=== PATIENT | female | born 1965 | race Hispanic/Latino ===

== ENCOUNTER 2017-04-25 16:18 | Inpatient (IN) | payer SELFPAY ==
--- NOTE | 2017-04-25 17:07 | C.PDOC ---
History Of Present Illness 51-year-old female, PMHx includes Bipolar Disorder, is transferred from [facility] for psych admission. Hospital records were reviewed. Patient was arrested last night for DUI, and told police that she was experiencing chest pain and having SI. Patient smith been experiencing chest pain for the past week which is attributed to her anxiety. Denies nausea/vomiting. No plan. Patient had a negative Troponin and and negative EKG at [place]. Time Seen by Provider: 04/25/17 16:26 Chief Complaint (Nursing): Psychiatric Evaluation History Per: Patient History/Exam Limitations: no limitations Past Medical History Reviewed: Historical Data, Nursing Documentation, Vital Signs Vital Signs: Last Vital Signs Temp 98.1 F 04/25/17 16:37 Pulse 80 04/25/17 16:37 Resp 18 04/25/17 16:37 BP 136/80 04/25/17 16:37 Pulse Ox 96 04/25/17 17:10 - Medical History PMH: Anxiety, Bipolar Disorder Surgical History: Cholecystectomy Family History: States: No Known Family Hx - Social History Hx Alcohol Use: Yes Hx Substance Use: No - Immunization History Hx Tetanus Toxoid Vaccination: No Hx Influenza Vaccination: No Hx Pneumococcal Vaccination: No Review Of Systems Except As Marked, All Systems Reviewed And Found Negative. Constitutional: Negative for: Fever, Chills Cardiovascular: Positive for: Chest Pain Respiratory: Negative for: Shortness of Breath Gastrointestinal: Negative for: Nausea, Vomiting Musculoskeletal: Negative for: Back Pain Neurological: Negative for: Weakness, Numbness Psych: Positive for: Anxiety, Suicidal ideation Physical Exam - Physical Exam Appears: Non-toxic, No Acute Distress, Other (appears anxious) Skin: Warm, Dry, No Rash Head: Atraumatic, Normacephalic Eye(s): bilateral: Normal Inspection Nose: Normal Oral Mucosa: Moist Lips: Normal Appearing Neck: Normal ROM Cardiovascular: Rhythm Regular, No Murmur Respiratory: Normal Breath Sounds, No Accessory Muscle Use Extremity: Normal ROM Neurological/Psych: Oriented x3, Normal Speech ED Course And Treatment O2 Sat by Pulse Oximetry: 96 (on RA) Pulse Ox Interpretation: Normal - Scribe Statement The provider has reviewed the documentation as recorded by the Scribe (Bryson Lentz) All medical record entries made by the Scribe were at my direction and personally dictated by me. I have reviewed the chart and agree that the record accurately reflects my personal performance of the history, physical exam, medical decision making, and the department course for this patient. I have also personally directed, reviewed, and agree with the discharge instructions and disposition.
--- NOTE | 2017-04-25 17:36 | PCM.BM ---
<JoseMarilynn segura - Last Filed: 04/25/17 17:35> Treatment Plan Problems - Problems identified on initial assessmt anxiety Date Initiated: 04/25/17 Time Initiated: 17:35 Assessment reference: NA Status: Active depression Date Initiated: 04/25/17 Time Initiated: 17:36 Assessment reference: NA Status: Active Treatment assets and liabiliti Patient Assests: adapts well, cooperative, negotiates basic needs Patient Liabilities: poor support system - Milieu Protocol Maintain good personal hygiene: daily Encourage regular showers, daily Remind patient to perform daily oral care Conduct patient checks and document Observation sheet: Q15 minutes Maintain personal safety: every shift Educate patient to report safety concerns to staff, every shift Monitor environment for contraband/sharps Medication safety: Monitor for expected outcome, potential side effects: every shift, Assess barriers to learning: every shift, Assess readiness for medication education: every shift <UlisesPatricia - Last Filed: 04/26/17 10:41> Family Contact Family involvement: Family/SO is involved Family contact: Patient declines to allow family contact at present - Goals for Treatment Patient goals for treatment: "I need an outpatient program." Discharge/Continuing Care - Education Needs Education Needs: Patient Medication, Patient Coping Skills - Discharge Discharge Criteria: Tolerates medication w/o severe side effects, Reduction of target symptoms Discharge to:: Home - Treatment Team Participation Discussed with Family/SO: No Was Patient/Family/SO present at Treatment Team Meeting: Yes <Jesús Hayden - Last Filed: 04/26/17 10:45> - Diagnosis (1) Bipolar disorder, curr episode mixed, severe, w/o psychotic features Status: Acute Interventions: 04/26/17 10:44 * Assess/adjust medications daily and /or as needed * See patient on an individual basis 7x/week to assess level of manic behaviors and stability * Discuss risks, benefits, side effects and alternatives of medications * (2) Alcohol use disorder, moderate, dependence Status: Acute Interventions: 04/26/17 10:45 * Assess 7x/week regarding severity of withdrawal * Educate regarding risks, benefits, side effects and alternatives of medications * Use Motivational Interviewing for abstinence * Use CBT for relapse prevention * Medication management for withdrawal symptoms * Encourage medication assisted treatment *
[2017-04-26] MEDS: Multiple Vitamins Tab PO SCH (09:29)
--- NOTE | 2017-04-26 10:40 | PCM.PSYCH ---
Initial Psychiatric Evaluation - Initial Psychiatric Evaluation Type of Admission: Voluntary Legal Status: Capacity Chief Complaint (in patient's own words): " I am depressed" History of Present Illness and Precipitating Events: Patient is a 51 year old female who was brought to the unit for a history of depression. She is single, living with her cousin, and has one daughter who has schizophrenia. 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 She denies any history of alcohol dependance, stating she is only a social drinker consuming 1 to 2 drinks weekly. That evening she drank 3-4 beers and one shot of hard liquor. This is her first DUI and denies any legal problems in the past. Patient has a history of depression and bipolar disorder. She currently is very tearful. She states she feels worthless, hopeless about her life situation, and overwhelmed. Her finances and family situation are her main stressors. At times she has racing thoughts at night that prevent her from sleeping. She also reports flight of ideas and irritability. She denies any hallucinations, paranoia, S/I or H/I. She denies any psychiatric follow up or taking medications. She does not have contact with her family and states she feels very "alone." Patient smokes 1 pack of cigarettes daily and is requesting the patch. She denies drug use. PMH:Denies Past Psych: Depression and anxiety. No past hospitalizations for the issues Family Psych History: Denies Current Medications: Active Medications Generic Name Dose Route Start Last Admin Trade Name Freq PRN Reason Stop Dose Admin Chlordiazepoxide 25 mg 04/25/17 18:09 04/25/17 19:35 Librium PO 25 mg Q6H PRN Administration Alcohol Withdrawal Clonidine HCl 0.1 mg 04/25/17 18:09 Catapres PO Q4H PRN Symptoms of alcohol withdrawl Folic Acid 1 mg 04/26/17 10:00 04/26/17 09:29 Folic Acid PO 1 mg DAILY CEFERINO Administration Gabapentin 100 mg 04/25/17 20:00 04/26/17 09:29 Neurontin PO 100 mg TID CEFERINO Administration Haloperidol 5 mg 04/25/17 18:07 Haldol PO Q1H PRN agitation max 4x/24h Hydroxyzine HCl 25 mg 04/25/17 18:07 04/26/17 07:53 Atarax PO 25 mg Q4H PRN Administration Anxiety Ibuprofen 400 mg 04/25/17 18:07 Motrin Tab PO Q6H PRN Pain, moderate (4-7) Multivitamins 1 tab 04/26/17 10:00 04/26/17 09:29 Hexavitamin PO 1 tab DAILY CEFERINO Administration Thiamine HCl 100 mg 04/26/17 10:00 04/26/17 09:29 Vitamin B1 Tab PO 100 mg DAILY CEFERINO Administration Trazodone HCl 50 mg 04/25/17 18:07 Desyrel PO HS PRN Insomnia Past Psychiatric History - Past Psychiatric History Previous Treatment History: None Pertinent Medical Hx (Current Medical&Sleep Prob, Allergies): Allergies Allergy/AdvReac Type Severity Reaction Status Date / Time bee venom protein (honey bee) Allergy Verified 04/25/17 16:39 seafood Allergy Uncoded 04/25/17 16:39 No Known Home Med 04/25/17 Review of Systems - Review of Systems All systems: reviewed and no additional remarkable complaints except - Psychiatric Psychiatric: Anhedonia, Anxiety, Depression, Hopelessness, Suicidal Ideation. absent: Hallucinations, Homicidal Ideation, Paranoia Mental Status Examination - Personal Presentation Personal Presentation: Looks stated age - Affect Affect: Constricted, Depressed - Motor Activity Motor Activity: Calm - Reliability in Providing Information Reliability in Providing Information: Good - Speech Speech: Organized - Mood Mood: Depressed, Anxious - Formal Thought Process Formal Thought Process: Flight of ideas - Obsessions/Compulsions Obsessions: No Compulsions: No - Cognitive Functions Orientation: Person, Place, Situation, Time Sensorium: Alert Attention/Concentration: Attentive Abstract Thinking: [place] Estimate of Intelligence: Below average Judgement: Imparied, as evidence by: Poor judgement, Imparied, as evidence by: Lack of insight into illness - Risk Risk: Suicidal, Withdrawal, Diminished functioning - Strength & Assets Inventory Strength & Assets Inventory: Family support, Employment status DSM 5 DX - DSM 5 DSM 5 Diagnosis: Bipolar disorder mixed severe without psychotic features Alcohol use disorder moderate - Recommended/Plan of Treatment Treatment Recommendations and Plan of Treatment: Bipolar disorder mixed severe without psychotic features CBT Psychoeducation Supportive therapy, group therapy, individual therapy Neurontin 300mg twice a day Depakote 250 twice a day [place] 300mg 3 times a day Trazodone 50 mg by mouth daily at bedtime Encourage compliance with meds and after care Refer to outpatient program Teach healthy lifestyle methods, i.e. diet, exercise, meditation Smoking cessation Alcohol use disorder moderate CBT Psychoeducation Supportive therapy, group therapy, individual therapy Librium when necessary Projected ELOS: 4 days - Smoking Cessation Smoking Cessation Initiated: No
[2017-04-26] MEDS: Divalproex 250 mg DR Tab PO SCH (17:39)
[2017-04-27 06:28] VITALS: O2SAT 98
[2017-04-27] MEDS: Divalproex 250 mg DR Tab PO SCH (10:02)
[2017-04-27] MEDS: Multiple Vitamins Tab PO SCH (10:02)
--- NOTE | 2017-04-27 13:36 | PCM.PYCHPN ---
Psychiatric Progress Note - Psychiatric Progress Note Patient seen today, length of contact: 15 min Patient Chief Complaint: " I am depressed" Problems Identified/Issues Discussed: The pt is seen, chart reviewed, case discussed with staff. Patient complains of poor sleep and break through anxiety. She states the medication is starting to work but there is timein between doses where she feels her anxiety come on. She also states she was only able to sleep 2 hours last night. Patient continues to be intermittently tearful during interactions. The pt is compliant with medications and reports no side-effects. Symptoms are improving but needs more time to stabilize. After care discussed, support and psychoeducation given. Medication Change: Yes (Increase lithium, DC Depakote) Medical Record Reviewed: Yes Mental Status Examination - Cognitive Function Orientation: Person, Place, Situation, Time Memory: Intact Attention: WNL Concentration: Poor Association: WNL Fund of Knowledge: Poor - Mood Mood: Depressed, Anxious - Affect Affect: Constricted, Depressed - Speech Speech: Soft - Formal Thought Process Formal Thought Process: No Impairment - Suicidal Ideation Suicidal Ideation: No - Homicidal Ideation Homicidal Ideation: No Goal/Treatment Plan - Goal/Treatment Plan Need for Continued Stay: Discharge may exacerbated symptoms, Severe functional impairment Progress Toward Problem(s) and Goals/Treatment Plan: Bipolar disorder mixed severe without psychotic features CBT Psychoeducation Supportive therapy, group therapy, individual therapy Neurontin 300mg twice a day d/c Depakote 250 twice a day Increase [place] 600mg 2 times a day Trazodone 100 mg by mouth daily at bedtime Encourage compliance with meds and after care Refer to outpatient program Teach healthy lifestyle methods, i.e. diet, exercise, meditation Smoking cessation Alcohol use disorder moderate CBT Psychoeducation Supportive therapy, group therapy, individual therapy Librium when necessary - Smoking Cessation Smoking Cessation Initiated: No
[2017-04-28 06:50] VITALS: BP 120/72; PULSE 64; RESP 18; TEMP 97.6
[2017-04-28] MEDS: Multiple Vitamins Tab PO SCH (09:41)
--- NOTE | 2017-04-28 10:36 | PCM.PYCHDC ---
Mental Status Examination - Mental Status Examination Orientation: Person, Place, Situation, Time Memory: Intact Mood: Neutral Affect: Constricted Speech: Soft Attention: WNL Concentration: WNL Association: WNL Fund of Knowledge: WNL Formal Thought Process: No Impairment Description of patient's judgement and insight: good, fair Psychotic Thoughts and Behaviors: denies any AVH Suicidal Ideation: No Current Homicidal Ideation?: No Discharge Summary - Discharge Note Reason for Hospitalization: Patient is a 51 year old female who was brought to the unit for a history of depression. She is single, living with her cousin, and has one daughter who has schizophrenia. 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 She denies any history of alcohol dependance, stating she is only a social drinker consuming 1 to 2 drinks weekly. That evening she drank 3-4 beers and one shot of hard liquor. This is her first DUI and denies any legal problems in the past. Patient has a history of depression and bipolar disorder. She currently is very tearful. She states she feels worthless, hopeless about her life situation, and overwhelmed. Her finances and family situation are her main stressors. At times she has racing thoughts at night that prevent her from sleeping. She denies any hallucinations, paranoia, S/I or H/I. She denies any psychiatric follow up or taking medications. She does not have contact with her family and states she feels very "alone." Patient smokes 1 pack of cigarettes daily and is requesting the patch. She denies drug use. PMH:Denies Past Psych: Depression and anxiety. No past hospitalizations for the issues Family Psych History: Denies Consultations:: List each consultation separately and include: 1. Reason for request. 2. Findings. 3. Follow-up Summary of Hospital Course include:: 1. Description of specific treatment plan utilized for patients during their course of treatmen. 2. Summarize the time- course for resolution of acute symptoms and/or regressed behaviors. 3. Describe issues identified and worked on during hospitalization. 4. Describe medication utilized. 5. Describe medical problems identified and treated. 6. Reassessment of suicide risk Summary of Hospital Course: Patient is a 51 year old female who was brought to the unit for a history of depression. She is single, living with her cousin, and has one daughter who has schizophrenia. 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 She denies any history of alcohol dependance, stating she is only a social drinker consuming 1 to 2 drinks weekly. That evening she drank 3-4 beers and one shot of hard liquor. This is her first DUI and denies any legal problems in the past. Patient has a history of depression and bipolar disorder. She currently is very tearful. She states she feels worthless, hopeless about her life situation, and overwhelmed. Her finances and family situation are her main stressors. At times she has racing thoughts at night that prevent her from sleeping. She also reports flight of ideas and irritability. She denies any hallucinations, paranoia, S/I or H/I. She denies any psychiatric follow up or taking medications. She does not have contact with her family and states she feels very "alone." Patient smokes 1 pack of cigarettes daily and is requesting the patch. She denies drug use. PMH:Denies Past Psych: Depression and anxiety. No past hospitalizations for the issues Family Psych History: Denies - Diagnosis (1) Bipolar disorder, curr episode mixed, severe, w/o psychotic features Current Visit: Yes Status: Acute (2) Alcohol use disorder, moderate, dependence Current Visit: Yes Status: Acute - Final Diagnosis (DSM 5) Condition upon Discharge: GOOD Disposition: HOME/ ROUTINE Follow-up Treatment Plan: Bipolar disorder mixed severe without psychotic features CBT Psychoeducation Supportive therapy, group therapy, individual therapy Neurontin 300mg twice a day d/c Depakote 250 twice a day Increase [place] 600mg 2 times a day Trazodone 100 mg by mouth daily at bedtime Encourage compliance with meds and after care Refer to outpatient program Teach healthy lifestyle methods, i.e. diet, exercise, meditation Smoking cessation Alcohol use disorder moderate CBT Psychoeducation Supportive therapy, group therapy, individual therapy Librium when necessary Prescriptions/Medication Reconciliation: Gabapentin [Neurontin] 300 mg PO BID #60 cap [place] Carbonate [[place] Carbonate 300MG] 600 mg PO BID #60 cap traZODone [Desyrel] 100 mg PO HS PRN #30 tab PRN Reason: Insomnia
== END 2017-04-28 12:16 | disposition home or self-care (01) | DRG 885 ==
LOC: C.ER 16:18 → C.9E 16:40 → C.5E 17:26
PROVIDERS: ADMIT Psychiatry & Neurology Psychiatry; ATTEND Psychiatry & Neurology Psychiatry
DX: F31.63 Bipolar disorder, current episode mixed, severe, without psychotic features (principal); F10.20 Alcohol dependence, uncomplicated; F17.210 Nicotine dependence, cigarettes, uncomplicated; F41.9 Anxiety disorder, unspecified